=== PATIENT | female | born 1995 | race Caucasian/White ===

== ENCOUNTER 2016-05-02 19:10 | Emergency (ER) | payer OTHER ==
[2016-05-02 19:31] LABS: BILIRUBIN NEGATIVE (NEGATIVE); BLOOD NEGATIVE Ery/uL (NEGATIVE); CLARITY CLEAR (CLEAR); COLOR YELLOW (YELLOW); GLUCOSE (U) NORMAL (NORMAL); KETONE (U) NEGATIVE (NEGATIVE); LEUKOCYTES NEGATIVE Leu/uL (NEGATIVE); NITRITE NEGATIVE (NEGATIVE); PROTEIN NEGATIVE (NEGATIVE); SPECIFIC GRAVITY >=1.030 (1.001-1.030); UROBILINOGEN 0.2 mg/dL (0.2-1.0)
[2016-05-02 21:30] LABS: BASOPHIL 0.4 % (0-2); EOSINOPHIL 1.4 % (0-5); HGB 13.2 g/dl (12.5-16.0); LYMPHOCYTE 32.6 % (15-48); MCHC 34.7 g/dL (32.0-36.0); MCV 83.5 fL (78.0-100.0); MONOCYTE 8.6 % (0-12); MPV 10.2 fL (6.0-9.5); PLT 236 K/uL (150-400); RBC 4.55 M/uL (4.20-5.40); RDW 13.1 % (11.5-14.0); WBC 8.6 K/uL (4.0-10.5)
[2016-05-02 21:46] LABS: ALBUMIN 4.1 g/dL (3.5-5.0); BILIRUBIN - TOTAL 0.2 mg/dL (0.1-1.0); CREATININE 0.6 mg/dL (0.5-1.0); POTASSIUM 3.8 mmol/L (3.5-5.1); TOTAL PROTEIN 6.1 g/dL (6.4-8.3)
== END 2016-05-02 22:14 | disposition home or self-care (01) ==
LOC: FER 19:10
PROVIDERS: Emergency Medicine Emergency Medical Services
DX: R10.12 Left upper quadrant pain (principal); M54.5 Low back pain; R07.9 Chest pain, unspecified; R11.2 Nausea with vomiting, unspecified; E86.9 Volume depletion, unspecified; Z88.0 Allergy status to penicillin
CPT/HCPCS: 36415; 71020; 74000; 80053; 81003; 85025; J1885; J2270; J2405

== ENCOUNTER 2016-06-27 23:05 | Emergency (ER) | payer OTHER ==
[2016-06-28 04:37] LABS: BASOPHIL 0.6 % (0-2); EOSINOPHIL 1.9 % (0-5); HCT 41.2 % (37.0-47.0); HGB 14.2 g/dl (12.5-16.0); LYMPHOCYTE 38.6 % (15-48); MCH 28.5 pg (25.0-31.0); MCHC 34.5 g/dL (32.0-36.0); MCV 82.6 fL (78.0-100.0); MONOCYTE 8.4 % (0-12); MPV 9.6 fL (6.0-9.5); NEUTROPHIL 50.5 % (41-80); PLT 245 K/uL (150-400); RBC 4.99 M/uL (4.20-5.40); RDW 13.3 % (11.5-14.0)
[2016-06-28 04:52] LABS: CREATININE 0.7 mg/dL (0.5-1.0); POTASSIUM 4.1 mmol/L (3.5-5.1)
== END 2016-06-28 06:25 | disposition home or self-care (01) ==
LOC: FER 23:05
PROVIDERS: Emergency Medicine
DX: R07.89 Other chest pain (principal); R11.2 Nausea with vomiting, unspecified; E86.9 Volume depletion, unspecified; Z88.0 Allergy status to penicillin
CPT/HCPCS: 36415; 71010; 80048; 84484; 85025; 85379; 93005

== ENCOUNTER 2016-07-01 01:27 | Emergency (ER) | payer OTHER ==
[2016-07-01 01:54] LABS: BASOPHIL 0.1 % (0-2); EOSINOPHIL 0.5 % (0-5); HCT 44.4 % (37.0-47.0); HGB 15.7 g/dl (12.5-16.0); LYMPHOCYTE 4.7 % (15-48); MCH 28.8 pg (25.0-31.0); MCHC 35.4 g/dL (32.0-36.0); MCV 81.3 fL (78.0-100.0); MONOCYTE 3.6 % (0-12); MPV 9.8 fL (6.0-9.5); NEUTROPHIL 91.1 % (41-80); PLT 248 K/uL (150-400); RBC 5.46 M/uL (4.20-5.40); RDW 13.3 % (11.5-14.0); WBC 11.1 K/uL (4.0-10.5)
[2016-07-01 02:08] LABS: ALBUMIN 4.6 g/dL (3.5-5.0); BILIRUBIN - TOTAL 0.6 mg/dL (0.1-1.0); CREATININE 0.7 mg/dL (0.5-1.0); GLOBULIN (CALCULATION) 3.2 g/dL (2.2-4.2); POTASSIUM 3.6 mmol/L (3.5-5.1); TOTAL PROTEIN 7.8 g/dL (6.4-8.3)
[2016-07-01 02:10] LABS: CKMB 2.87 ng/mL (0.97-4.94); TROPONIN T < 0.010 ng/mL
[2016-07-01 05:41] LABS: BILIRUBIN NEGATIVE (NEGATIVE); BLOOD NEGATIVE Ery/uL (NEGATIVE); CLARITY CLEAR (CLEAR); COLOR YELLOW (YELLOW); GLUCOSE (U) NORMAL (NORMAL); KETONE (U) 1+ (SMALL) mg/dL (NEGATIVE); LEUKOCYTES NEGATIVE Leu/uL (NEGATIVE); NITRITE NEGATIVE (NEGATIVE); PROTEIN NEGATIVE (NEGATIVE); UROBILINOGEN 0.2 mg/dL (0.2-1.0)
[2016-07-01 05:55] LABS: BENZODIAZEPINES NEGATIVE (NEGATIVE)
[2016-07-01 05:56] LABS: AMPHETAMINES NEGATIVE (NEGATIVE); BARBITURATES NEGATIVE (NEGATIVE); COCAINE NEGATIVE (NEGATIVE); MARIJUANA (THC) NEGATIVE (NEGATIVE); METHADONE NEGATIVE (NEGATIVE); TRICYCLIC ANTIDEPRESSANT NEGATIVE (NEGATIVE)
== END 2016-07-01 08:35 | disposition home or self-care (01) ==
LOC: FER 01:27
PROVIDERS: Emergency Medicine Emergency Medical Services
DX: R07.1 Chest pain on breathing (principal); R11.2 Nausea with vomiting, unspecified; E86.9 Volume depletion, unspecified; Z88.0 Allergy status to penicillin
CPT/HCPCS: 36415; 71010; 71275; 80053; 80305; 81003; 82150; 82550; 82553; 83690; 84484; 84703; 85025; 85379; 93005; J1885; J2270; J2405; J2930; Q9967